=== PATIENT | male | born 1995 | race Caucasian/White ===

== ENCOUNTER → 2025-01-14 | Outpatient (CLI) | payer OTHER, SELFPAY ==
--- NOTE | 2025-01-14 14:00 | MRI_ITS ---
EXAM: MRI LUMBAR SPINE. CLINICAL HISTORY: Back pain. COMPARISON: Radiographs on 12/12/2024. TECHNIQUE: Axial and sagittal T1 and T2 weighted images were obtained. Fat suppressed images were also obtained. FINDINGS: There is normal signal intensity from the visualized bone marrow without evidence of replacement or acute fracture. The conus is unremarkable. Exaggerated lumbar lordosis. Evaluation of the individual levels revealed the following: L5-S1: There is grade 1 anterolisthesis measuring 6.2 mm secondary to bilateral pars defects. Mild diffuse disc bulge. Superimposed broad-based left foraminal disc protrusion measuring 3.2 mm. Mild bilateral facet joint arthropathy. The spinal canal is not narrowed. There is mild right and moderate left neural foramina narrowing. L4-5: There is moderate diffuse disc bulge. Superimposed broad-based central disc protrusion measuring 5.7 mm. The spinal canal is not narrowed. There is mild bilateral neural foramina narrowing. L3-4: There is minimal diffuse disc bulge. The spinal canal is not narrowed. There is no evidence of neural foramina narrowing. L2-3: There is minimal diffuse disc bulge. The spinal canal is not narrowed. There is no evidence of neural foramina narrowing. L1-2: There is minimal diffuse disc bulge. The spinal canal is not narrowed. There is no evidence of neural foramina narrowing. Normal visualized paraspinous soft tissue structures. MRI/Spine Lumbar (Routine) IMPRESSION: Degenerative disc disease, more prominent at L4-L5 and L5-S1 levels. Reading Location: [place] [id number]
== END | disposition home or self-care (01) ==
LOC: MRI 13:19
PROVIDERS: Referring Provider Student in an Organized Health Care Education/Training Program; Visit Provider Student in an Organized Health Care Education/Training Program
DX: R52 Pain, unspecified (principal)
CPT/HCPCS: 72148